=== PATIENT | male | born 2005 | race Caucasian/White ===

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

== ENCOUNTER 2023-01-31 14:59 | Emergency (ER) | payer BC, MEDICAID, SELFPAY ==
[2023-01-31 15:15] VITALS: BP 167/74; PULSE 76; RESP 17; TEMP 36.9; O2SAT 93; BMI 34.0
[2023-01-31 15:34] VITALS: BP 131/78; PULSE 84; RESP 16; O2SAT 99
[2023-01-31 15:35] VITALS: BP 131/78; PULSE 85; RESP 16; O2SAT 99
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
--- NOTE | 2023-01-31 15:39 | PC.NURSE ---
pt placed in gown and on nuclear monitoring technician
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
[2023-01-31 17:12] VITALS: BP 118/70; PULSE 82; RESP 17; O2SAT 98
== END 2023-01-31 17:13 | disposition home or self-care (01) ==
PROVIDERS: Emergency Provider Family Medicine
DX: Z04.1 Encounter for examination and observation following transport accident (principal); M79.602 Pain in left arm; M25.562 Pain in left knee; S80.812A Abrasion, left lower leg, initial encounter; S80.811A Abrasion, right lower leg, initial encounter; S40.812A Abrasion of left upper arm, initial encounter; S40.811A Abrasion of right upper arm, initial encounter; V49.9XXA Car occupant (driver) (passenger) injured in unspecified traffic accident, initial encounter
CPT/HCPCS: 71045; 72040; 72170; 73030; 73080; 73562; 99284